=== PATIENT | male | born 1965 | race Caucasian/White ===

== ENCOUNTER 2017-07-23 21:48 | Emergency (ER) | payer OTHER ==
[2017-07-23] MEDS ORDERED: MORPHINE 10 MG/ML VIAL IVP STA (21:55)
[2017-07-23] MEDS ORDERED: SODIUM CHLORIDE 0.9% 1,000 ML IV ONE (21:55)
--- NOTE | 2017-07-23 21:59 | ED Physician Documentation ---
PD HPI ABD PAIN - Stated complaint Stated Complaint: ABD/BACK PX - History obtained from History obtained from: Patient - History of Present Illness Timing - onset: How many hours ago (1.5) Timing - details: Abrupt onset, Still present Quality: Cramping, Aching, Sharp Location: RUQ Radiation: Right flank Worsened by: Eating, Position Associated symptoms: No: Fever, Nausea, Vomiting, Diarrhea, Constipation Similar symptoms before: Work up / diagnostics Recently seen: Not recently seen - Additional information Additional information: Patient is a 51 year old male who is presenting to the emergency department for abdominal pain. Patient states that it started this evening. patient reports that it is mainly in his right upper quadrant with radiation to his right flank. Patient states that he has had a problem with his gallbladder in the past but he never needed surgery. Patient states that he ate a pulled pork sandwich earlier today. Review of Systems Constitutional: denies: Fever, Chills Eyes: denies: Decreased vision Ears: denies: Ear pain Nose: denies: Congestion Throat: denies: Dental pain / toothache Cardiac: denies: Chest pain / pressure, Palpitations Respiratory: denies: Dyspnea GI: reports: Abdominal Pain, Nausea. denies: Vomiting, Constipation, Diarrhea : denies: Dysuria, Frequency, Hematuria, Discharge Skin: denies: Rash, Lesions Musculoskeletal: reports: Back pain Neurologic: denies: Generalized weakness, Focal weakness Immunocompromised: reports: Other (diabetic) PD PAST MEDICAL HISTORY - Present Medications Home Medications: Ambulatory Orders Medication Instructions Recorded Confirmed Amlodipine Besylate 10 mg PO DAILY 07/23/17 07/23/17 Atorvastatin [Lipitor] 10 mg PO DAILY 07/23/17 07/23/17 Gabapentin 300 mg PO BID 07/23/17 07/23/17 Hydrochlorothiazide 12.5 mg PO DAILY 07/23/17 07/23/17 Lisinopril 20 mg PO DAILY 07/23/17 07/23/17 Loratadine 10 mg PO DAILY 07/23/17 07/23/17 Montelukast [Singulair] 10 mg PO QPM 07/23/17 07/23/17 Ondansetron Odt [Zofran] 4 mg TL Q6H PRN #10 tablet 07/23/17 Oxycodone HCl/Acetaminophen 1 - 2 each PO Q6H PRN #10 tablet 07/23/17 [Percocet 5-325 mg Tablet] metFORMIN [Glucophage] 500 mg PO BID 07/23/17 07/23/17 - Allergies Allergies/Adverse Reactions: Allergies Allergy/AdvReac Type Severity Reaction Status Date / Time No Known Drug Allergies Allergy Verified 07/23/17 21:57 PD ED PE NORMAL - Vitals Vital signs reviewed: Yes - General General: Alert and oriented X 3 - HEENT HEENT: Atraumatic, PERRL - Neck Neck: Supple, no meningeal sign - Cardiac Cardiac: RRR, No murmur - Respiratory Respiratory: No respiratory distress - Derm Derm: Normal color, Warm and dry, No rash - Extremities Extremities: No deformity, Normal ROM s pain - Neuro Neuro: Alert and oriented X 3, No motor deficit, No sensory deficit, Normal speech - Psych Psych: Normal mood, Normal affect PD ED PE EXPANDED - General General: Alert, No acute distress - HEENT HEENT: Dry mucous membranes - Abdomen Abdomen: Tender to palpation, RUQ, Other (obese). No: Rebound, Guarding Results - Vitals Vitals: Vital Signs - 24 hr 07/23/17 21:55 Temperature 37.8 C H Heart Rate 86 Respiratory 20 Rate Blood Pressure 172/117 H O2 Saturation 95 Oxygen O2 Source Room air - Labs Labs: Laboratory Tests 07/23/17 07/23/17 07/23/17 22:10 22:10 22:47 WBC 9.7 RBC 4.68 L Hgb 14.3 Hct 41.4 L MCV 88.5 MCH 30.6 MCHC 34.6 RDW 12.6 Plt Count 248 MPV 7.6 Neut # 5.1 Lymph # 3.1 Jack # 1.0 Eos # 0.4 Baso # 0.1 Absolute Nucleated RBC 0.00 Nucleated RBC % 0.0 Sodium 136 Potassium 3.6 Chloride 99 L Carbon Dioxide 29 Anion Gap 8.0 BUN 19 Creatinine 1.2 Estimated GFR (MDRD) 64 L Glucose 208 H Calcium 9.3 Total Bilirubin 0.5 AST 34 ALT 56 Alkaline Phosphatase 69 Total Protein 7.2 Albumin 4.4 Globulin 2.8 Albumin/Globulin Ratio 1.6 Lipase 48 Urine Color YELLOW Urine Clarity CLOUDY Urine pH 8.0 H Ur Specific [place] 1.015 Urine Protein NEGATIVE Urine Glucose (UA) 100 H Urine Ketones NEGATIVE Urine Occult Blood NEGATIVE Urine Nitrite NEGATIVE Urine Bilirubin NEGATIVE Urine Urobilinogen 0.2 (NORMAL) Ur Leukocyte Esterase NEGATIVE Urine RBC None Seen Urine WBC 0-3 Ur Squamous Epith Cells NONE SEEN Amorphous Sediment Moderate Urine Bacteria None Seen Ur Microscopic Review INDICATED Urine Culture Comments NOT INDICATED - Rads (name of study) abdom limited us Radiology: Final report received (gallstones without signs of acute infection) PD MEDICAL DECISION MAKING - ED course Complexity details: reviewed old records, reviewed results, re-evaluated patient , considered differential, d/w patient ED course: Patient was seen and examined at bedside. IV access was gained and labs were drawn. patient was treated with iv fluids and morphine. ultrasound was ordered. when the ultrasound was complete the results were reviewed. there were multiple stones but no sign of acute cholecystitis. Patient was made aware of the findings. Departure - Departure Disposition: Home, Self Care Clinical Impression: Gallstones without obstruction of gallbladder Condition: Good Instructions: ED Gallstone W Biliary Colic Follow-Up: KEYON QUIROGA MD [Provider Admit Priv/Credential] - Within 3 Days Prescriptions: Ondansetron Odt [Zofran] 4 mg TL Q6H PRN #10 tablet PRN Reason: Nausea / Vomiting Oxycodone HCl/Acetaminophen [Percocet 5-325 mg Tablet] 1 - 2 each PO Q6H PRN # 10 tablet PRN Reason: pain Comments: Your symptoms today are being caused by gallstones. there is no sign of acute infection at this time. ther first thing you will need to do is to change your diet, no fried or fatty foods. You should follow up with your doctor for general surgery consult or you can talk to Dr. Quiroga as it will eventually need to be taken out. You can take zofran for nausea, and tylenol for pain, and percocet for breakthrough pain. You should return to the emergency department for fevers, chills or uncontrolled vomiting.
[2017-07-23] MEDS ORDERED: MORPHINE 2 MG/ML SYRINGE ONE (22:06)
[2017-07-23 22:14] LABS: BASOPHILS # (AUTO) 0.1 10^3/uL (0.0-0.1); BASOPHILS % (AUTO) 0.8 %; EOSINOPHILS # (AUTO) 0.4 10^3/uL (0.0-0.7); EOSINOPHILS % (AUTO) 4.3 %; HCT - HEMATOCRIT 41.4 % (42.0-52.0); HGB - HEMOGLOBIN 14.3 g/dL (14.0-18.0); LYMPHOCYTES # (AUTO) 3.1 10^3/uL (1.5-3.5); LYMPHOCYTES % (AUTO) 31.8 %; MEAN CORPUSCULAR HEMOGLOBIN 30.6 pg (27.0-31.0); MEAN CORPUSCULAR HGB CONC 34.6 g/dL (32.0-36.0); MEAN CORPUSCULAR VOLUME 88.5 fL (80.0-94.0); MEAN PLATELET VOLUME 7.6 fL (7.4-11.4); MONOCYTES % (AUTO) 10.3 %; NEUTROPHILS # (AUTO) 5.1 10^3/uL (1.5-6.6); NEUTROPHILS % (AUTO) 52.8 %; RED BLOOD COUNT 4.68 10^6/uL (4.70-6.10); RED CELL DISTRIBUTION WIDTH 12.6 % (12.0-15.0); UNCORRECTED WHITE BLOOD COUNT 9.7 x10^3/uL; WHITE BLOOD COUNT 9.7 x10^3/uL (4.8-10.8)
[2017-07-23 22:27] LABS: ALBUMIN/GLOBULIN RATIO 1.6 (1.0-2.2); BILIRUBIN,TOTAL 0.5 mg/dL (0.2-1.0); CALCIUM 9.3 mg/dL (8.5-10.3); CREATININE 1.2 mg/dL (0.6-1.2); POTASSIUM 3.6 mmol/L (3.5-5.0); TOTAL PROTEIN 7.2 g/dL (6.7-8.2)
[2017-07-23 22:53] LABS: BILIRUBIN,URINE NEGATIVE (NEGATIVE)
[2017-07-23 22:55] LABS: UA w/ MICROSCOPIC CHARGE YES
[2017-07-23 23:01] LABS: UR CULTURE IF IND NOT INDICATED; WBC,URINE 0-3 /HPF (0-3)
--- NOTE | 2017-07-23 23:15 | Ultrasound Preliminary Report ---
Exam: US ABDOMEN LIMITED IMPRESSION: 1. Gallstones with positive sonographic Rizvi sign. No definite gallbladder wall thickening or peric holecystic fluid. Symptomatic cholelithiasis or early acute cholecystitis remain at the differential. 2. Enlarged fatty liver with focal fat sparing in the gallbladder fossa. No mass or intrahepatic bile duct dilation. 3. Normal common bile duct. [facility] SITE ID: [id number]
[2017-07-23 23:41] VITALS: BP 147/92
--- NOTE | 2017-07-24 00:18 | Ultrasound Report ---
EXAM: ABDOMEN ULTRASOUND LIMITED, RUQ EXAM DATE: 07/23/2017 10:11 PM. CLINICAL HISTORY: Right upper quadrant pain, history of gallbladder disease. COMPARISON: None. TECHNIQUE: Real-time scanning was performed with static images obtained. FINDINGS: Liver: Liver parenchyma is heterogeneous and moderately hyperechoic. No discrete liver masses or in trahepatic bile duct dilation. However, evaluation for masses is limited secondary to the echogenici ty. Focal fat sparing near the gallbladder fossa noted. Right liver measures up to 19.4 cm. Main por michael vein flow: Hepatopetal. Gallbladder: Multiple mobile gallstones and sludge. Per report, the patient had a positive sonographi c Rizvi sign. No definite gallbladder wall thickening or pericholecystic fluid. Biliary System: CBD measures 4 mm. No intrahepatic or extrahepatic ductal dilatation. Right Kidney: Length measures 11.8 cm. No hydronephrosis. Exophytic anechoic 3.3 x 3.8 x 3.5 cm super ior right renal cyst. Other: None. IMPRESSION: 1. Gallstones with positive sonographic Rizvi sign. No definite gallbladder wall thickening or peric holecystic fluid. Symptomatic cholelithiasis or early acute cholecystitis remain at the differential. 2. Enlarged fatty liver with focal fat sparing near the gallbladder fossa. No mass or intrahepatic bi le duct dilation. 3. Normal common bile duct. [facility] Referring Provider Line: [phone] SITE ID: [id number]
== END 2017-07-23 23:41 | disposition home or self-care (01) ==
LOC: ED 21:48
DX: K80.80 Other cholelithiasis without obstruction (principal)
CPT/HCPCS: 36415; 76705; 80053; 81001; 81003; 83690; 85025; 87086; 96360; 99283

== ENCOUNTER 2017-07-26 18:09 | Inpatient (IN) | payer OTHER ==
[2017-07-26] MEDS ORDERED: SODIUM CHLORIDE 0.9% 1,000 ML IV ONE ×2 (18:29)
[2017-07-26] MEDS ORDERED: ONDANSETRON 4 MG/2 ML VIAL IVP STA (18:29)
[2017-07-26] MEDS ORDERED: HYDROmorphone 1 MG/ML SYRINGE IVP STA ×2 (18:29→19:26)
--- NOTE | 2017-07-26 18:33 | ED Physician Documentation ---
PD HPI ABD PAIN - Stated complaint Stated Complaint: ABDOMINAL PX - Chief complaint Chief Complaint: Abd Pain - History obtained from History obtained from: Patient, Family - History of Present Illness Timing - onset: How many days ago (3) Timing - duration: Days (3) Timing - details: Gradual onset Pain level max: 10 Pain level now: 10 Quality: Aching, Pain Location: RUQ Radiation: Other (mid back) Improved by: Other (nothing) Worsened by: Eating, Palpation Associated symptoms: Nausea. No: Fever, Vomiting, Hematemesis, Diarrhea, Constipation, Melena, Hematochezia, Dysuria, Hematuria Similar symptoms before: Diagnosis (biliary colic) Recently seen: Emergency Dept (3 days ago for same, US with gallstones and + rizvi) Review of Systems Ten Systems: 10 systems reviewed and negative Constitutional: denies: Fever, Chills Nose: denies: Rhinorrhea / runny nose, Congestion Throat: denies: Sore throat Cardiac: denies: Chest pain / pressure : denies: Dysuria Skin: denies: Rash Musculoskeletal: denies: Neck pain, Back pain Neurologic: denies: Headache PD PAST MEDICAL HISTORY - Past Medical History Past Medical History: Yes Cardiovascular: Hypertension, High cholesterol Respiratory: Other Neuro: None Endocrine/Autoimmune: Type 2 diabetes GI: Cholelithiasis : None HEENT: None Psych: None Musculoskeletal: None Derm: None - Past Surgical History Past Surgical History: No - Present Medications Home Medications: Ambulatory Orders Medication Instructions Recorded Confirmed Amlodipine Besylate 10 mg PO DAILY 07/23/17 07/26/17 Atorvastatin [Lipitor] 10 mg PO DAILY 07/23/17 07/26/17 Gabapentin 300 mg PO BID 07/23/17 07/26/17 Hydrochlorothiazide 12.5 mg PO DAILY 07/23/17 07/26/17 Lisinopril 20 mg PO DAILY 07/23/17 07/26/17 Loratadine 10 mg PO DAILY 07/23/17 07/26/17 Montelukast [Singulair] 10 mg PO QPM 07/23/17 07/26/17 Ondansetron Odt [Zofran Odt] 4 mg TL Q6H PRN #10 tablet 07/23/17 07/26/17 Oxycodone HCl/Acetaminophen 1 - 2 each PO Q6H PRN #10 tablet 07/23/17 07/26/17 [Percocet 5-325 mg Tablet] metFORMIN [Glucophage] 500 mg PO BID 07/23/17 07/26/17 - Allergies Allergies/Adverse Reactions: Allergies Allergy/AdvReac Type Severity Reaction Status Date / Time No Known Drug Allergies Allergy Verified 07/23/17 21:57 - Social History Does the pt smoke?: No Smoking Status: Never smoker Does the pt drink ETOH?: No Does the pt have substance abuse?: No - Immunizations Immunizations are current?: Yes PD ED PE NORMAL - Vitals Vital signs reviewed: Yes - General General: Alert and oriented X 3, No acute distress - HEENT HEENT: Moist mucous membranes - Neck Neck: Supple, no meningeal sign - Cardiac Cardiac: RRR, Strong equal pulses - Respiratory Respiratory: No respiratory distress, Clear bilaterally - Abdomen Abdomen: Soft, Non distended, Other (TTP RUQ, + sonographic rizvi sign) - Derm Derm: Warm and dry - Neuro Neuro: Alert and oriented X 3 - Psych Psych: Normal mood, Normal affect Results - Vitals Vitals: Vital Signs - 24 hr 07/26/17 18:18 Temperature 36.9 C Heart Rate 88 Respiratory 20 Rate Blood Pressure 164/99 H O2 Saturation 100 Oxygen O2 Source Room air - Labs Labs: Laboratory Tests 07/26/17 07/26/17 18:33 18:33 WBC 29.8 H RBC 5.02 Hgb 15.3 Hct 44.9 MCV 89.6 MCH 30.4 MCHC 33.9 RDW 12.9 Plt Count 283 MPV 8.0 Neut # Not Reportable Lymph # Not Reportable [place] # Not Reportable Eos # Not Reportable Baso # Not Reportable Absolute Nucleated RBC Not Reportable Total Counted 100 Band Neuts % (Manual) 2 Nucleated RBC % Not Reportable Neutrophils # (Manual) 26.5 H Lymphocytes # (Manual) 0.6 L Monocytes # (Manual) 2.7 H Differential Comment MANUAL DIFFERENTIAL Manual Slide Review Indicated Platelet Estimate NORMAL (130-450,000) Platelet Morphology RARE GIANT PLATELETS RBC Morph Micro Appear NORMAL APPEARANCE Sodium 133 L Potassium 3.2 L Chloride 91 L Carbon Dioxide 26 Anion Gap 16.0 H BUN 13 Creatinine 1.2 Estimated GFR (MDRD) 64 L Glucose 225 H Calcium 9.3 Total Bilirubin 1.2 H AST 19 ALT 29 Alkaline Phosphatase 63 Total Protein 7.9 Albumin 4.0 Globulin 3.9 Albumin/Globulin Ratio 1.0 Lipase 21 L - Rads (name of study) RUQ US Radiology: Prelim report reviewed, EMP read contemporaneously, See rad report ( Sonographic findings suspicious for acute cholecystitis. Gallbladder is distended. Mild gallbladder wall thickening. There is cholelithiasis and a positive sonographic Rizvi sign. No intra-or extrahepatic bile duct dilatation.) PD MEDICAL DECISION MAKING - ED course Complexity details: reviewed results, re-evaluated patient, considered differential, d/w patient, d/w bridal consultant ED course: 1829 Dr. Chato Romeo (surgery operations assistant) and recommends labs to decide if needs repeat US. / Dr. Romeo who requests US. Patient is a 51-year-old male who presents to the emergency department with cholecystitis. White blood cell count is significantly elevated, though LFTs are still normal. Appears to have cholecystitis on ultrasound. Started on Zosyn. Will admit the patient for further evaluation and care including likely surgery to remove the gallbladder. Does not appear septic. Discussed the case with Dr. Romeo, surgery on-call as well as Dr. Erwin, hospitalist. Pain well controlled in the emergency department. This document was made in part using voice recognition software. While efforts are made to proofread this document, sound alike and grammatical errors may occur. Departure - Departure Disposition: [facility] DC/Christiano Clinical Impression: Acute cholecystitis Condition: Stable Discharge Date/Time: 07/26/17 20:31
[2017-07-26 18:42] LABS: BASOPHILS % (AUTO) 0.4 %; EOSINOPHILS % (AUTO) 0.2 %; HCT - HEMATOCRIT 44.9 % (42.0-52.0); HGB - HEMOGLOBIN 15.3 g/dL (14.0-18.0); LYMPHOCYTES % (AUTO) 5.2 %; MEAN CORPUSCULAR HEMOGLOBIN 30.4 pg (27.0-31.0); MEAN CORPUSCULAR HGB CONC 33.9 g/dL (32.0-36.0); MEAN CORPUSCULAR VOLUME 89.6 fL (80.0-94.0); MONOCYTES % (AUTO) 9.9 %; NEUTROPHILS % (AUTO) 84.3 %; RED BLOOD COUNT 5.02 10^6/uL (4.70-6.10); RED CELL DISTRIBUTION WIDTH 12.9 % (12.0-15.0); UNCORRECTED WHITE BLOOD COUNT 29.8 x10^3/uL; WHITE BLOOD COUNT 29.8 x10^3/uL (4.8-10.8)
[2017-07-26] MEDS ORDERED: ONDANSETRON 4 MG/2 ML VIAL ONE (18:42)
[2017-07-26] MEDS ORDERED: HYDROmorphone 1 MG/ML SYRINGE ONE ×2 (18:42→19:34)
[2017-07-26 18:52] LABS: BILIRUBIN,TOTAL 1.2 mg/dL (0.2-1.0); CALCIUM 9.3 mg/dL (8.5-10.3); CREATININE 1.2 mg/dL (0.6-1.2); POTASSIUM 3.2 mmol/L (3.5-5.0); TOTAL PROTEIN 7.9 g/dL (6.7-8.2)
[2017-07-26] MEDS ORDERED: PIPERACILLIN/TAZOBACTAM 3.375 GM in SODIUM CHLORIDE 0.9% MINIBAG 100 ML IV STA (19:03)
[2017-07-26 19:06] LABS: BAND NEUTROPHILS % (MANUAL) 2 %; LYMPHOCYTES % (MANUAL) 2 %; NEUTROPHILS % (MANUAL) 87 %; NP AUTO DIFFERENTIAL? YES; NP MAN DIFFERENTIAL? NO; PLATELET ESTIMATE, MANUAL NORMAL (130-450,000) (NORMAL); PLATELET MORPHOLOGY RARE GIANT PLATELETS (NORMAL); TOTAL CELLS COUNTED 100
[2017-07-26] MEDS ORDERED: ZOLPIDEM 5 MG TABLET PO PRN (19:57)
[2017-07-26] MEDS ORDERED: PROMETHAZINE 25 MG/1 ML VIAL IM PRN (19:57)
[2017-07-26] MEDS ORDERED: PROCHLORPERAZINE 10 MG/2 ML VIAL IVP PRN (19:57)
[2017-07-26] MEDS ORDERED: oxyCODONE 5 MG TABLET PO PRN (19:57)
[2017-07-26] MEDS ORDERED: ONDANSETRON 4 MG/2 ML VIAL IVP PRN (19:57)
--- NOTE | 2017-07-26 20:16 | Ultrasound Preliminary Report ---
Exam: US ABDOMEN LIMITED IMPRESSION: 1. Sonographic findings suspicious for acute cholecystitis. The gallbladder is distended. There is mi ld gallbladder wall thickening. There is cholelithiasis and a positive sonographic Rivzi sign. 2. No intra-or extrahepatic bile duct dilatation. [facility] SITE ID: [id number]
--- NOTE | 2017-07-26 20:18 | Ultrasound Report ---
EXAM: ABDOMEN ULTRASOUND LIMITED, RUQ EXAM DATE: 07/26/2017 08:00 PM. CLINICAL HISTORY: RUQ pain. COMPARISON: 07/23/2017. TECHNIQUE: Real-time scanning was performed with static images obtained. FINDINGS: Liver: There is hepatic steatosis. No suspicious hepatic lesions are seen. Decreased echogenicity adj acent to gallbladder fossa could be secondary to inflammation and/or represent focal fatty sparing. M ain portal vein flow: Hepatopetal. Gallbladder: There is mild gallbladder wall thickening. There is cholelithiasis. There is a positive sonographic Rizvi sign. The gallbladder is distended. Biliary System: CBD measures 5 mm. No intrahepatic or extrahepatic ductal dilatation. Other: The visualized pancreas and right kidney are unremarkable. IMPRESSION: 1. Sonographic findings suspicious for acute cholecystitis. The gallbladder is distended. There is mi ld gallbladder wall thickening. There is cholelithiasis and a positive sonographic Rizvi sign. 2. No intra-or extrahepatic bile duct dilatation. [facility] Referring Provider Line: [phone] SITE ID: [id number]
[2017-07-26] MEDS: GABAPENTIN 300 MG CAPSULE PO SCH (20:52)
[2017-07-26] MEDS: oxyCODONE 5 MG TABLET PO PRN (20:52)
--- NOTE | 2017-07-26 20:52 | CONSULTATION NOTE ---
Referring Provider Name of Referring Provider:: Dr. Erwin Consult Date: 07/26/17 Chief Complaint - Chief Complaint Chief Complaint: abdominal pain History of Present Illness - Admitted From Admitted From:: ER - History Obtained From Records Reviewed: yes History obtained from: patient - History of Present Illness HPI Comment/Other: 51 yo male with 3 days of constant, steady epigastric and RUQ abdominal pain which radiates into back, associated with anorexia but no N/V, fever/chills, change in bowel habits, melena, hematochezia, diarrhea, dysuria, urinary frequency, acute respiratory sx, unusual oral intake, recent wt changes, jaundice or acholic stools. He has occasional heartburn, no dysphagia, no hx PUD , minimal alcohol intake. He has type 2 NIDDM and a family hx of gallbladder disease in his mother and grandmother. He was seen in the ER 3 days ago shortly after onset of sx where CBC, LFTs, lipase, UA were nl and abd US showed cholelithiasis with a positive sonographic Rizvi's sign but no gallbladder wall thickening or biliary ductal abnormalities. Because of persistent, worsening pain unrelieved with oxycodone he returned to the ER tonight for reevaluation. History - Past Medical History Cardiovascular: reports: Hypertension, High cholesterol Respiratory: reports: Asthma, Other Neuro: reports: Peripheral neuropathy (diabetic involving feet with pain but no sensory loss) Endocrine/Autoimmune: reports: Type 2 diabetes GI: reports: GERD, Cholelithiasis. denies: GI bleed, Ulcers, Chronic diarrhea, Chronic constipation, Hepatitis : reports: None HEENT: reports: None Psych: reports: None Musculoskeletal: reports: Other (bilat knee pain with jogging) Derm: reports: None MRSA Hx?: No - Past Surgical History HEENT: reports: Other (multiple sinus surgeries) - Family & Social History Living arrangement: At home - Substance History Use: Uses substance without health or social issues: NONE Abuse: Recurrent use of substance despite neg consequences: NONE Dependence: Experiences withdrawal or developed tolerances: NONE - POLST POLST Status: Full Code Meds/Allgy - Home Medications Home Medications: Ambulatory Orders Medication Instructions Recorded Confirmed Amlodipine Besylate 10 mg PO DAILY 07/23/17 07/26/17 Atorvastatin [Lipitor] 10 mg PO DAILY 07/23/17 07/26/17 Gabapentin 300 mg PO BID 07/23/17 07/26/17 Hydrochlorothiazide 12.5 mg PO DAILY 07/23/17 07/26/17 Lisinopril 20 mg PO DAILY 07/23/17 07/26/17 Loratadine 10 mg PO DAILY 07/23/17 07/26/17 Montelukast [Singulair] 10 mg PO QPM 07/23/17 07/26/17 Ondansetron Odt [Zofran] 4 mg TL Q6H PRN #10 tablet 07/23/17 07/26/17 Oxycodone HCl/Acetaminophen 1 - 2 each PO Q6H PRN #10 tablet 07/23/17 07/26/17 [Percocet 5-325 mg Tablet] metFORMIN [Glucophage] 500 mg PO BID 07/23/17 07/26/17 - Allergies Allergies/Adverse Reactions: Allergies Allergy/AdvReac Type Severity Reaction Status Date / Time No Known Drug Allergies Allergy Verified 07/23/17 21:57 Review of Systems - Constitutional Constitutional: reports: Poor appetite. denies: Fever, Chills, Diaphoresis, Night sweats, Weight gain, Weight loss - Cardiovascular Cariovascular: denies: Irregular heart rate, Chest pain - Respiratory Respiratory: denies: Cough - Gastrointestinal Gastrointestinal: reports: Abdominal pain, Reflux/heartburn, Poor appetite. denies: Abdominal distention, Constipation, Diarrhea, Change in bowel habits, Rectal bleeding, Black stools, Bloody stools, Nausea, Vomiting, Bile emesis, [place] blood emesis, Coffee grounds emesis - Genitourinary Genitourinary: reports: Flank pain. denies: Dysuria, Frequency, Urgency, Hematuria - Musculoskeletal Musculoskeletal: reports: Joint pain (knees) - Neurological Neurological: reports: Other (foot pain bilat thought due to diabetic peripheral neuropathy) - All Other Systems All Other Systems: reports: Reviewed and negative Exam - Vital Signs Vital Signs: Vital Signs x48h Temp Pulse Resp BP Pulse Ox 07/26/17 20:39 38.3 C H 117 H 18 131/90 H 93 - Physical Exam General Appearance: positive: Moderate distress (c/o abd pain) Eyes Bilateral: positive: Normal inspection, PERRL, No scleral icterus ENT: positive: Pharynx nml, Dry mucous membranes. negative: Pharyngeal erythema , Oral lesions Neck: positive: Thyroid nml, No JVD, Trachea midline. negative: Lymphadenopathy (R), Lymphadenopathy (L) Respiratory: positive: Chest non-tender, No respiratory distress, Breath sounds nml Cardiovascular: positive: Regular rate & rhythm, No murmur, No gallop Peripheral Pulses: positive: 2+ Abdomen: positive: No organomegaly, Nml bowel sounds, Tenderness (RUQ with guarding and rebound and positive Rizvi's sign; no generalized peritoneal signs ), Guarding, Rebound. negative: Hepatomegaly, Splenomegaly, Mass Skin: positive: Color nml, No rash, Warm, Dry Extremities: positive: Non-tender, Nml appearance, No pedal edema. negative: Pedal edema, Calf tenderness Neurologic/Psychiatric: positive: Oriented x3 Conclusion/Plan - Diagnosis Diagnosis: 1. acute calculous cholecystitis. 2. sepsis secondary to above. 3. hypokalemia secondary to diuretic therapy. 4. mild volume depletion. 5. hyperglycemia in pt with known type 2 NIDDM. 6. hypertension - Plan Plan: Admission for analgesia, antibiotic therapy, IV fluids, replace potassium, treat hyperglycemia, and laparoscopic cholecystectomy in am. PAR conference with patient and consent has been signed. - Lab Results Fish Bones: 07/26/17 18:33 07/26/17 18:33 - Diagnostic Imaging Results Diagnostic Imaging Results: positive: Prelim report reviewed, Final report reviewed, Read contemporaneously
[2017-07-26] MEDS: SODIUM CHLORIDE FLUSH 0.9% 10 ML SYRINGE IVP SCH (20:53)
[2017-07-26] MEDS: MORPHINE 2 MG/ML SYRINGE IVP PRN ×2 (20:56→23:00)
[2017-07-26] MEDS ORDERED: MONTELUKAST 10 MG TABLET PO SCH (21:00)
[2017-07-26] MEDS ORDERED: FAMOTIDINE 20 MG TABLET ONE (21:11)
[2017-07-26] MEDS: ACETAMINOPHEN 325 MG TABLET PO PRN (21:22)
[2017-07-26] MEDS ORDERED: POTASSIUM CHLORIDE 20 MEQ TABLET PO SCH (22:16)
[2017-07-26 22:30] LABS: BILIRUBIN,URINE NEGATIVE (NEGATIVE); PH,URINE 5.5 PH (5.0-7.5)
[2017-07-26 22:44] LABS: UA w/ MICROSCOPIC CHARGE YES
[2017-07-26 22:45] LABS: UR CULTURE IF IND NOT INDICATED; WBC,URINE 0-3 /HPF (0-3)
[2017-07-26] MEDS: NS W/20 MEQ KCL 1,000 ML IV SCH (22:59)
[2017-07-27] MEDS: PIPERACILLIN/TAZOBACTAM 3.375 GM in SODIUM CHLORIDE 0.9% MINIBAG 100 ML IV SCH ×2 (00:01→05:57)
[2017-07-27] MEDS: INSULIN REGULAR HUMAN 100 UNIT/1 ML 10 ML MDV SUBQ SCH ×2 (00:02→05:56)
[2017-07-27] MEDS: oxyCODONE 5 MG TABLET PO PRN (00:48)
[2017-07-27] MEDS: MORPHINE 2 MG/ML SYRINGE IVP PRN ×3 (01:01→11:26)
--- NOTE | 2017-07-27 02:44 | HISTORY & PHYSICAL EXAMINATION ---
Chief Complaint - Chief Complaint Chief Complaint: Abdominal pain History of Present Illness - Admitted From Admitted From:: Emergency department - History Obtained From Records Reviewed: Yes History obtained from: Patient Exam Limitations: None - History of Present Illness HPI Comment/Other: Patient is a 51-year-old gentleman with a past medical history significant for type 2 diabetes, hypertension, hyperlipidemia, chronic sinusitis and asthma who presented to the emergency department with a chief complaint of abdominal pain. The patient states that he was in his normal state of health until Friday evening at 7 PM when he began having abdominal pain. Patient states that the pain was initially located in the right upper quadrant and it was sharp. He states the pain persisted so he went to the emergency department that evening. He was evaluated in our emergency department and underwent routine lab work which was all within normal limits and an abdominal ultrasound which did not show any gallbladder wall thickening but the patient did have a positive Rizvi sign which could have been suggestive of early cholecystitis. Patient was given pain medications and discharged home. The patient states that after returning home he has had persistent right upper quadrant abdominal pain which now he states has become diffuse and radiates down into his back. Patient describes the pain as a sharp pain that is unrelenting. He states that the pain is about a 7 out of 10. The patient states that he has been unable to eat almost anything over the last several days because of the pain and decreased appetite. The patient does admit to having a fever at home but denies any nausea or vomiting. The patient states that he took 3 pills of Vicodin that was prescribed to him today and had no relief of the pain and therefore finally decided to come back into the emergency department. The patient otherwise denies any headaches, blurred vision, runny nose, sore throat, nasal congestion, difficulty swallowing, throat pain, chest pain, shortness of air, orthopnea, PND, increased lower extremity swelling, chills, diarrhea, constipation, urinary urgency, urinary frequency, dysuria, joint pains , muscle aches, joint swelling, recent unintentional weight loss, polydipsia, changes in his skin, hair loss or any focal neurologic deficits. On presentation to the emergency department the patient was afebrile and vital signs were initially all within normal limits but the patient did appear to be in significant distress due to his abdominal pain. Later the patient spiked a temperature up to 38.3 and became tachycardic but was normotensive. The patient underwent routine lab work which did show a leukocytosis of 29.8, hypo- natremia of 133 and hypokalemia of 3.2. The patient's lactic acid was within normal limits. The patient underwent a repeat ultrasound of his abdomen this time the ultrasound shows sonographic findings suspicious for acute cholecystitis with a distended gallbladder and mild gallbladder wall thickening. The emergency room physician spoke with the surgeon textile conversion manager Dr. Eugenio Romeo who evaluated the patient in the emergency department. The surgeon requested that the hospitalist team admit the patient and give the patient IV antibiotics and fluids overnight and that he would take the patient to the OR for a laparoscopic cholecystectomy tomorrow morning at 9 AM. The patient was made n.p.o. for the procedure. History - Past Medical History Cardiovascular: reports: Hypertension, High cholesterol Respiratory: reports: Asthma, Other (Chronic sinusitis) Neuro: reports: Peripheral neuropathy Endocrine/Autoimmune: reports: Type 2 diabetes GI: reports: GERD, Cholelithiasis : reports: None HEENT: reports: None Psych: reports: None Musculoskeletal: reports: Other Derm: reports: None MRSA Hx?: No - Past Surgical History General: reports: Other HEENT: reports: Other - Family & Social History Family History Comment/Other: Mother and great-grandmother both had issues with her gallbladder. The patient' s mother is still alive and healthy. The patient has 2 sisters who are alive and healthy. The patient did not know his father. Living arrangement: At home Living Situation: Alone Social History Notes: The patient lives in [place]. He lives alone he is single and has no children. 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 Patient is originally from [place] but lived all over the country as his dad was in the [employer] growing up. The patient does not smoke cigarettes, he does not drink alcohol and he denies any illicit drug use. - Substance History Use: Uses substance without health or social issues: NONE Abuse: Recurrent use of substance despite neg consequences: NONE Dependence: Experiences withdrawal or developed tolerances: NONE - POLST Patient has POLST: No POLST Status: Full Code Meds/Allgy - Home Medications Home Medications: Ambulatory Orders Medication Instructions Recorded Confirmed Amlodipine Besylate 10 mg PO DAILY 07/23/17 07/26/17 Atorvastatin [Lipitor] 10 mg PO DAILY 07/23/17 07/26/17 Gabapentin 300 mg PO BID 07/23/17 07/26/17 Hydrochlorothiazide 12.5 mg PO DAILY 07/23/17 07/26/17 Lisinopril 20 mg PO DAILY 07/23/17 07/26/17 Loratadine 10 mg PO DAILY 07/23/17 07/26/17 Montelukast [Singulair] 10 mg PO QPM 07/23/17 07/26/17 Ondansetron Odt [Zofran] 4 mg TL Q6H PRN #10 tablet 07/23/17 07/26/17 Oxycodone HCl/Acetaminophen 1 - 2 each PO Q6H PRN #10 tablet 07/23/17 07/26/17 [Percocet 5-325 mg Tablet] metFORMIN [Glucophage] 500 mg PO BID 07/23/17 07/26/17 - Allergies Allergies/Adverse Reactions: Allergies Allergy/AdvReac Type Severity Reaction Status Date / Time No Known Drug Allergies Allergy Verified 07/23/17 21:57 Review of Systems - Other Findings Other Findings: A comprehensive review of systems was performed the pertinent positives and negatives are stated above in the HPI and the remainder of the review of systems is negative. Exam - Vital Signs Reviewed Vital Signs: Yes Vital Signs: Vital Signs x48h Temp Pulse Resp BP Pulse Ox 07/27/17 00:06 37.5 C 114 H 18 135/90 H 92 07/26/17 20:39 38.3 C H 117 H 18 131/90 H 93 - Physical Exam General Appearance: positive: Alert, Mild distress (Uncomfortable, in pain.) Eyes Bilateral: positive: Normal inspection, PERRL, EOMI, No lid inflammation, Conjunctivae nml, No scleral icterus ENT: positive: ENT inspection nml, Pharynx nml, Dry mucous membranes. negative : Purulent nasal drainage, Pharyngeal erythema, Oral lesions Neck: positive: Nml inspection, Thyroid nml, No JVD, Trachea midline. negative : Thyromegaly, Lymphadenopathy (R), Lymphadenopathy (L), Stiff neck, Carotid bruit, Tracheal deviation Respiratory: positive: Chest non-tender, No respiratory distress, Breath sounds nml. negative: Wheezes, Rales, Rhonchi Cardiovascular: positive: No murmur, No gallop, Tachycardia Peripheral Pulses: positive: 2+ Abdomen: positive: Nml bowel sounds, Tenderness (Patient is diffusely tender but there is localized tenderness in the right upper quadrant, positive Rizvi sign, guarding), Guarding. negative: Rebound, Hepatomegaly, Splenomegaly Back: positive: Nml inspection. negative: CVA tenderness (R), CVA tenderness (L ) Skin: positive: No rash, Dry. negative: Cyanosis, Diaphoresis, Pallor Extremities: positive: Non-tender, Full ROM, Nml appearance, No pedal edema. negative: Calf tenderness, Joint swelling Neurologic/Psychiatric: positive: Oriented x3, CN's nml (2-12), Motor nml, Sensation nml, Mood/affect nml Conclusion/Plan - Problem List (1) Sepsis Conclusion/Plan: Patient presented with right upper quadrant abdominal pain. Initially patient' s vital signs were stable but patient quickly became febrile with temperature of 38.1, tachycardic with heart rate in the 110s and he was found to have a leukocytosis of 29.8. The patient's lactic acid was normal, kidney function was preserved but he did appear to be quite dehydrated. The source of the patient's sepsis appears to be acute cholecystitis as there was evidence on ultrasound for acute cholecystitis. Plan: Blood cultures 2 IV fluids IV Zosyn 3.375 g every 6 hours Monitor closely for hypotension Surgical consult for cholecystectomy (2) Acute cholecystitis Conclusion/Plan: Patient presented with right upper quadrant abdominal pain. Patient had a positive Rizvi sign and ultrasound revealed patient has acute cholecystitis. Patient was septic on presentation with leukocytosis of 29.8, fever 38.1 and tachycardia. Patient given IV fluids and IV Zosyn in the emergency department. Surgery was consulted and will take the patient to the OR for cholecystectomy in the morning. Plan: IV Zosyn IV morphine for pain control N.p.o. Surgical consult for laparoscopic cholecystectomy tomorrow morning (3) Hypokalemia Conclusion/Plan: Patient's potassium on presentation was 3.2. Patient appears to be dehydrated. Replace potassium Monitor (4) Hyponatremia Conclusion/Plan: Patient presented with a sodium of 133. The patient appears to have hypovolemic hyponatremia likely secondary to dehydration. Plan give IV fluids and monitor sodium (5) Diabetes Conclusion/Plan: The patient has history of diabetes and is on metformin. On presentation the patient's blood glucose is 225. It is likely elevated secondary to infectious process. Plan: Check hemoglobin A1c Monitor glucose before meals at bedtime Patient n.p.o. and will be placed on n.p.o. sliding scale insulin Hold metformin Qualifiers: Diabetes mellitus type: type 2 (6) Hypertension Conclusion/Plan: Given that patient presented with sepsis we will need to monitor closely for hypotension. On presentation the patient did appear to be hypertensive likely secondary to pain. Plan: Monitor patient's blood pressure Continue home medications Control pain Qualifiers: Hypertension type: essential hypertension Qualified Code(s): I10 - Essential (primary) hypertension (7) Hyperlipidemia Conclusion/Plan: Patient has history of hyperlipidemia and is on a statin at home we will continue him on statin while he is hospitalized. (8) Asthma Conclusion/Plan: Patient has history of chronic sinusitis and mild asthma. Patient takes Singulair at home. The patient will be continued on Singulair and will receive nebs as needed. Currently the patient appears to be stable (9) DVT prophylaxis Conclusion/Plan: Patient will be placed on Lovenox for DVT prophylaxis as he will undergo surgical procedure in the morning. - Lab Results Lab results reviewed: Yes Fish Bones: 07/26/17 18:33 07/26/17 18:33 Other Lab Results: Laboratory Results WBC 29.8 x10^3/uL (4.8-10.8) H 07/26/17 18:33 RBC 5.02 10^6/uL (4.70-6.10) 07/26/17 18:33 Hgb 15.3 g/dL (14.0-18.0) 07/26/17 18:33 Hct 44.9 % (42.0-52.0) 07/26/17 18:33 MCV 89.6 fL (80.0-94.0) 07/26/17 18:33 MCH 30.4 pg (27.0-31.0) 07/26/17 18:33 MCHC 33.9 g/dL (32.0-36.0) 07/26/17 18:33 RDW 12.9 % (12.0-15.0) 07/26/17 18:33 Plt Count 283 10^3/uL (130-450) 07/26/17 18:33 MPV 8.0 fL (7.4-11.4) 07/26/17 18:33 Neut # Not Reportable 07/26/17 18:33 Lymph # Not Reportable 07/26/17 18:33 [place] # Not Reportable 07/26/17 18:33 Eos # Not Reportable 07/26/17 18:33 Baso # Not Reportable 07/26/17 18:33 Absolute Nucleated RBC Not Reportable 07/26/17 18:33 Total Counted 100 07/26/17 18:33 Band Neuts % (Manual) 2 % (0-10) 07/26/17 18:33 Nucleated RBC % Not Reportable 07/26/17 18:33 Neutrophils # (Manual) 26.5 10^3/uL (1.5-6.6) H 07/26/17 18:33 Lymphocytes # (Manual) 0.6 10^3/uL (1.5-3.5) L 07/26/17 18:33 Monocytes # (Manual) 2.7 10^3/uL (0.0-1.0) H 07/26/17 18:33 Differential Comment MANUAL DIFFERENTIAL 07/26/17 18:33 Manual Slide Review Indicated 07/26/17 18:33 Platelet Estimate NORMAL (130-450,000) (NORMAL) 07/26/17 18:33 Platelet Morphology RARE GIANT PLATELETS (NORMAL) 07/26/17 18:33 RBC Morph Micro Appear NORMAL APPEARANCE (NORMAL) 07/26/17 18:33 Sodium 133 mmol/L (135-145) L 07/26/17 18:33 Potassium 3.2 mmol/L (3.5-5.0) L 07/26/17 18:33 Chloride 91 mmol/L (101-111) L 07/26/17 18:33 Carbon Dioxide 26 mmol/L (21-32) 07/26/17 18:33 Anion Gap 16.0 (6-13) H 07/26/17 18:33 BUN 13 mg/dL (6-20) 07/26/17 18:33 Creatinine 1.2 mg/dL (0.6-1.2) 07/26/17 18:33 Estimated GFR (MDRD) 64 (>89) L 07/26/17 18:33 Glucose 225 mg/dL (70-100) H 07/26/17 18:33 POC Whole Bld Glucose 207 mg/dL (70 - 100) H 07/26/17 23:47 Lactic Acid 1.7 mmol/L (0.5-2.2) 07/26/17 20:20 Calcium 9.3 mg/dL (8.5-10.3) 07/26/17 18:33 Total Bilirubin 1.2 mg/dL (0.2-1.0) H 07/26/17 18:33 AST 19 IU/L (10-42) 07/26/17 18:33 ALT 29 IU/L (10-60) 07/26/17 18:33 Alkaline Phosphatase 63 IU/L (42-121) 07/26/17 18:33 Total Protein 7.9 g/dL (6.7-8.2) 07/26/17 18:33 Albumin 4.0 g/dL (3.2-5.5) 07/26/17 18:33 Globulin 3.9 g/dL (2.1-4.2) 07/26/17 18:33 Albumin/Globulin Ratio 1.0 (1.0-2.2) 07/26/17 18:33 Lipase 21 U/L (22-51) L 07/26/17 18:33 Urine Color YELLOW 07/26/17 22:22 Urine Clarity HAZY (CLEAR) 07/26/17 22:22 Urine pH 5.5 PH (5.0-7.5) 07/26/17 22:22 Ur Specific [place] >=1.030 (1.002-1.030) H 07/26/17 22:22 Urine Protein 100 mg/dL (NEGATIVE) H 07/26/17 22:22 Urine Glucose (UA) NEGATIVE mg/dL (NEGATIVE) 07/26/17 22:22 Urine Ketones NEGATIVE mg/dL (NEGATIVE) 07/26/17 22:22 Urine Occult Blood SMALL (NEGATIVE) H 07/26/17 22:22 Urine Nitrite NEGATIVE (NEGATIVE) 07/26/17 22:22 Urine Bilirubin NEGATIVE (NEGATIVE) 07/26/17 22:22 Urine Urobilinogen 0.2 (NORMAL) E.U./dL (NORMAL) 07/26/17 22:22 Ur Leukocyte Esterase NEGATIVE (NEGATIVE) 07/26/17 22:22 Urine RBC 6-10 /HPF (0-5) H 07/26/17 22:22 Urine WBC 0-3 /HPF (0-3) 07/26/17 22:22 Ur Squamous Epith Cells RARE Squamous (<= Few) 07/26/17 22:22 Amorphous Sediment Moderate /LPF 07/26/17 22:22 Urine Bacteria Rare /HPF (None Seen) 07/26/17 22:22 Urine Casts 3-5 Fine Granular /LPF 07/26/17 22:22 Ur Microscopic Review INDICATED 07/26/17 22:22 Urine Culture Comments NOT INDICATED 07/26/17 22:22 - Diagnostic Imaging Results Diagnostic Imaging Results: positive: Final report reviewed Diagnostic Imaging Results Comments: Abdominal ultrasound Impression: 1. Sonographic findings suspicious for acute cholecystitis. The gallbladder is distended. There is mild gallbladder wall thickening. There is cholelithiasis and positive sonographic Rizvi sign. 2. No intra-or extrahepatic bile duct dilatation. Issues/Core Measures - Anticipated LOS Anticipated Stay Length: 2 or more midnights - DVT/VTE - Prophylaxis VTE/DVT Prophylaxis med ordered at admit?: Yes
[2017-07-27] MEDS: NS W/20 MEQ KCL 1,000 ML IV SCH (05:55)
[2017-07-27] MEDS: ACETAMINOPHEN 325 MG TABLET PO PRN (05:55)
[2017-07-27] MEDS: SODIUM CHLORIDE FLUSH 0.9% 10 ML SYRINGE IVP SCH (06:01)
[2017-07-27 06:20] LABS: BASOPHILS % (AUTO) 0.4 %; HGB - HEMOGLOBIN 13.7 g/dL (14.0-18.0); LYMPHOCYTES % (AUTO) 7.4 %; MEAN CORPUSCULAR HGB CONC 34.4 g/dL (32.0-36.0); MEAN CORPUSCULAR VOLUME 90.1 fL (80.0-94.0); MEAN PLATELET VOLUME 7.8 fL (7.4-11.4); MONOCYTES % (AUTO) 8.2 %; RED BLOOD COUNT 4.44 10^6/uL (4.70-6.10)
[2017-07-27 06:27] LABS: INR 1.3 (0.8-1.2)
[2017-07-27 06:38] LABS: ALBUMIN/GLOBULIN RATIO 0.9 (1.0-2.2); BILIRUBIN,TOTAL 3.4 mg/dL (0.2-1.0); CALCIUM 8.1 mg/dL (8.5-10.3); CREATININE 1.1 mg/dL (0.6-1.2); MAGNESIUM 1.4 mg/dL (1.7-2.8); POTASSIUM 3.6 mmol/L (3.5-5.0); TOTAL PROTEIN 6.3 g/dL (6.7-8.2)
[2017-07-27 06:55] LABS: BAND NEUTROPHILS % (MANUAL) 5 %; LYMPHOCYTES % (MANUAL) 7 %; NEUTROPHILS % (MANUAL) 78 %; TOTAL CELLS COUNTED 100
[2017-07-27 06:56] LABS: NP AUTO DIFFERENTIAL? YES; NP MAN DIFFERENTIAL? NO; PLATELET ESTIMATE, MANUAL NORMAL (130-450,000) (NORMAL); PLATELET MORPHOLOGY NORMAL APPEARANCE (NORMAL)
[2017-07-27 07:32] LABS: HEMOGLOBIN A1C 0.82 g/dL
[2017-07-27 07:48] VITALS: BP 117/77
[2017-07-27] MEDS ORDERED: hydroCHLOROthiazide 12.5 MG CAPSULE PO SCH (09:00)
[2017-07-27] MEDS ORDERED: LISINOPRIL 20 MG TABLET PO SCH (09:00)
[2017-07-27] MEDS ORDERED: amLODIPine 5 MG TABLET PO SCH (09:00)
[2017-07-27] MEDS ORDERED: POLYETHYLENE GLYCOL 3350 17 GM PACKET PO SCH (09:00)
[2017-07-27] MEDS ORDERED: ATORVASTATIN 10 MG TABLET PO SCH (09:00)
[2017-07-27] MEDS ORDERED: FAMOTIDINE 20 MG TABLET PO SCH (09:00)
[2017-07-27] MEDS ORDERED: ENOXAPARIN 40 MG/0.4 ML SYRINGE SUBQ SCH (09:00)
[2017-07-27] MEDS: GABAPENTIN 300 MG CAPSULE PO SCH (09:14)
[2017-07-27] MEDS: SODIUM CHLORIDE FLUSH 0.9% 10 ML SYRINGE IVP PRN ×2 (09:21→11:26)
--- NOTE | 2017-07-27 09:24 | Discharge Plan ---
Discharge Plan Disposition: 02 Transfer Acute Care Hosp Condition: Stable Diet: Regular Activity Restrictions: No Restrictions Shower Restrictions: No Driving Restrictions: No Weight Bearing: Full Weight Instruction Topics: Cholecystectomy, ERCP Additional Instructions or Follow Up instructions: PATIENT WAS TO BE TRANSFERRED TO [facility] FOR GI CONSULT AND ADMITTING WITH DR AVALOS WITH SURGERY ERCP PENDING. PATIENT TO BE DISCHARGED ON ALL MEDICATIONS FROM HOME AND IV ZOSYN PATIENT VERBALLY AGREED TO TRANSFER FOR SERVICES NOT HERE AT [facility] No Smoking: If you smoke, Please STOP! Call for help.
--- NOTE | 2017-07-27 09:26 | DISCHARGE SUMMARY ---
"Discharge Summary Admit Date: 07/26/17 Discharge Date: 07/27/17 Discharging Provider: JADEN LEDEZMA APRN Primary Care Provider: NO PCP Code Status: Attempt Resuscitation Condition at Discharge: Serious Discharge Disposition: 02 Transfer Acute Care Hosp Discharge Facility Name: home - DIAGNOSES Admission Diagnoses: 1. ACUTE SEPSIS, UNSPECIFIED 2. ACUTE CHOLECYSTITIS 3. ACUTE HYPOKALEMIA 4. HYPONATREMIA WITH HYPO-OSMOLALITY 5. 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 UNSPECIFIED ASTHMA, UNCOMPLICATED 7. HYPERLIPIDEMIA, UNSPECIFIED 8. ESSENTIAL PRIMARY HYPERTENSION Discharge Diagnoses with Status of Each Condition: 1. ACUTE SEPSIS WITH LEUKOCYTOSIS SECONDARY TO PROBABLE ACUTE CHOLEANGITIS 2. ACUTE CHOLELITHIASIS POSSIBLE CHOLECYSTITIS 3. ACUTE HYPOKALEMIA AND OTHER ELECTROLYTE ABNORMALITIES 4. HYPONATREMIA WITH HYPO-OSMOLALITY 5. 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 UNSPECIFIED ASTHMA, UNCOMPLICATED 7. MIXED HYPERLIPIDEMIA 8. ESSENTIAL PRIMARY HYPERTENSION - HPI History of Present Illness: History of Present Illness HPI Comment/Other: Patient is a 51-year-old gentleman with a past medical history significant for type 2 diabetes, hypertension, hyperlipidemia, chronic sinusitis and asthma who presented to the emergency department with a chief complaint of abdominal pain. The patient states that he was in his normal state of health until Friday evening at 7 PM when he began having abdominal pain. Patient states that the pain was initially located in the right upper quadrant and it was sharp. He states the pain persisted so he went to the emergency department that evening. He was evaluated in our emergency department and underwent routine lab work which was all within normal limits and an abdominal ultrasound which did not show any gallbladder wall thickening but the patient did have a positive Rizvi sign which could have been suggestive of early cholecystitis. Patient was given pain medications and discharged home. The patient states that after returning home he has had persistent right upper quadrant abdominal pain which now he states has become diffuse and radiates down into his back. Patient describes the pain as a sharp pain that is unrelenting. He states that the pain is about a 7 out of 10. The patient states that he has been unable to eat almost anything over the last several days because of the pain and decreased appetite. The patient does admit to having a fever at home but denies any nausea or vomiting. The patient states that he took 3 pills of Vicodin that was prescribed to him today and had no relief of the pain and therefore finally decided to come back into the emergency department. The patient otherwise denies any headaches, blurred vision, runny nose, sore throat, nasal congestion, difficulty swallowing, throat pain, chest pain, shortness of air, orthopnea, PND, increased lower extremity swelling, chills, diarrhea, constipation, urinary urgency, urinary frequency, dysuria, joint pains , muscle aches, joint swelling, recent unintentional weight loss, polydipsia, changes in his skin, hair loss or any focal neurologic deficits. On presentation to the emergency department the patient was afebrile and vital signs were initially all within normal limits but the patient did appear to be in significant distress due to his abdominal pain. Later the patient spiked a temperature up to 38.3 and became tachycardic but was normotensive. The patient underwent routine lab work which did show a leukocytosis of 29.8, hypo- natremia of 133 and hypokalemia of 3.2. The patient's lactic acid was within normal limits. The patient underwent a repeat ultrasound of his abdomen this time the ultrasound shows sonographic findings suspicious for acute cholecystitis with a distended gallbladder and mild gallbladder wall thickening. The emergency room physician spoke with the surgeon it support consultant Dr. Eugenio Romeo who evaluated the patient in the emergency department. The surgeon requested that the hospitalist team admit the patient and give the patient IV antibiotics and fluids overnight and that he would take the patient to the OR for a laparoscopic cholecystectomy tomorrow morning at 9 AM. The patient was made n.p.o. for the procedure. - CONSULTS | PROCEDURES Consultations: SURGERY Procedures: ULTRASOUND OF ABDOMEN SHOWED ACUTE CHOLECYSTITIS WITH WALL THICKENING. - HOSPITAL COURSE Hospital Course: PATIENT WAS ADMITTED WITH RIGHT UPPER QUADRANT PAIN AND PROBABLE CHOLECYSTITIS. SURGERY WAS ASKED TO CONSULT 1. ACUTE SEPSIS WITH LEUKOCYTOSIS SECONDARY TO PROBABLE ACUTE CHOLEANGITIS Patient was started on IV Zosyn with blood cultures drawn. Tylenol for fever. CBC to monitor white count. monitor for changes in vital signs. IVF NS for hydration. IV Zofran for nausea. surgery consulted for surgery evaluation. patient needed an ERCP not available at [facility] and needed to transfer to [facility] for ERCP. 2. ACUTE CHOLELITHIASIS POSSIBLE CHOLECYSTITIS Patient had an ultrasound showing an acute gallbladder from a biliary bstruction or gallstones in the gallbladder. He now is febrile and with elevated WBC. Tachycardic and with pain to right upper quadrant. surgery consulted and suggested an ERCP. [facility] will be able to take patient for further intervenions for gallbladder. 3. ACUTE HYPOKALEMIA AND OTHER ELECTROLYTE ABNORMALITIES Patient received IV potassium and IVF for hydration. monitored electrolytes with daily lab draws. 4. HYPONATREMIA WITH HYPO-OSMOLALITY Patient received IVF NS for gentle hydration and monitored sodium levels with daily lab draws. 5. INSULIN DEPENDENT DIABETES MELLITUS WITHOUT COMPLICATIONS Patient remained on sliding scale insulin and diabetic diet. 6. UNSPECIFIED ASTHMA, UNCOMPLICATED Patient received supplemental oxygen as needed and continued on inhaler as needed with RT support as needed. 7. MIXED HYPERLIPIDEMIA Patient remained on his statin and lipid profile checked 8. ESSENTIAL PRIMARY HYPERTENSION Patient continued on home dosage of blood pressure medications DVT prophylaxis with Lovenox and SCD Status: patient is full code After evaluation from surgery, decided that patient needed an ERCP before decision for surgical intervention. [facility] is not able to do this procedure. He was transferred to [facility] under the care of Dr Lima and Dr Melgar (GI) for pending ERCP and possible cholecystitis surgical intervention. He was transported by ground BLS with IVF and IV medications for pain and nausea. He was aware of transfer and agreeable. Vital signs were stable at discharge. - ALLERGIES Allergies/Adverse Reactions: Allergies Allergy/AdvReac Type Severity Reaction Status Date / Time No Known Drug Allergies Allergy Verified 07/23/17 21:57 - MEDICATIONS Home Medications: Ambulatory Orders Medication Instructions Recorded Confirmed Amlodipine Besylate 10 mg PO DAILY 07/23/17 07/26/17 Atorvastatin [Lipitor] 10 mg PO DAILY 07/23/17 07/26/17 Gabapentin 300 mg PO BID 07/23/17 07/26/17 Hydrochlorothiazide 12.5 mg PO DAILY 07/23/17 07/26/17 Lisinopril 20 mg PO DAILY 07/23/17 07/26/17 Loratadine 10 mg PO DAILY 07/23/17 07/26/17 Montelukast [Singulair] 10 mg PO QPM 07/23/17 07/26/17 Ondansetron Odt [Zofran Odt] 4 mg TL Q6H PRN #10 tablet 07/23/17 07/26/17 Oxycodone HCl/Acetaminophen 1 - 2 each PO Q6H PRN #10 tablet 07/23/17 07/26/17 [Percocet 5-325 mg Tablet] metFORMIN [Glucophage] 500 mg PO BID 07/23/17 07/26/17 - PHYSICAL EXAM AT DISCHARGE General Appearance: positive: No acute distress, Alert Eyes Bilateral: positive: Normal inspection, PERRL, EOMI ENT: positive: ENT inspection nml, Pharynx nml, No signs of dehydration Neck: positive: Nml inspection, Thyroid nml, No JVD, Trachea midline Respiratory: positive: Chest non-tender, No respiratory distress, Breath sounds nml Cardiovascular: positive: No murmur, No gallop, Tachycardia Peripheral Pulses: positive: 2+ Abdomen: positive: No organomegaly, Tenderness, Guarding Extremities: positive: Non-tender, Full ROM, Nml appearance, No pedal edema Neurologic/Psychiatric: positive: Oriented x3, CN's nml (2-12), Motor nml, Sensation nml, Mood/affect nml - LABS Result Diagrams: 07/27/17 06:09 07/27/17 06:09 Other Lab Results: Abnormal Lab Results 07/26/17 07/26/17 07/26/17 18:33 18:33 22:22 WBC 29.8 x10^3/uL H x10^3/uL (4.8-10.8) RBC Hgb Hct Neutrophils # (Manual) 26.5 10^3/uL H 10^3/uL (1.5-6.6) Lymphocytes # (Manual) 0.6 10^3/uL L 10^3/uL (1.5-3.5) Monocytes # (Manual) 2.7 10^3/uL H 10^3/uL (0.0-1.0) PT INR Sodium 133 mmol/L L mmol/L (135-145) Potassium 3.2 mmol/L L mmol/L (3.5-5.0) Chloride 91 mmol/L L mmol/L (101-111) Anion Gap 16.0 H (6-13) Estimated GFR (MDRD) 64 L (>89) Glucose 225 mg/dL H mg/dL (70-100) POC Whole Bld Glucose Glycated Hemoglobin Estim Average Glucose Calcium Magnesium Total Bilirubin 1.2 mg/dL H mg/dL (0.2-1.0) AST ALT Alkaline Phosphatase Total Protein Albumin Albumin/Globulin Ratio Lipase 21 U/L L U/L (22-51) Ur Specific [place] >=1.030 H (1.002-1.030) Urine Protein 100 mg/dL H mg/dL (NEGATIVE) Urine Occult Blood SMALL H (NEGATIVE) Urine RBC 6-10 /HPF H /HPF (0-5) 07/26/17 07/27/17 07/27/17 23:47 05:45 06:09 WBC 22.0 x10^3/uL H x10^3/uL (4.8-10.8) RBC 4.44 10^6/uL L 10^6/uL (4.70-6.10) Hgb 13.7 g/dL L g/dL (14.0-18.0) Hct 40.0 % L % (42.0-52.0) Neutrophils # (Manual) 18.3 10^3/uL H 10^3/uL (1.5-6.6) Lymphocytes # (Manual) Monocytes # (Manual) 1.3 10^3/uL H 10^3/uL (0.0-1.0) PT INR Sodium Potassium Chloride Anion Gap Estimated GFR (MDRD) Glucose POC Whole Bld Glucose 207 mg/dL H mg/dL 197 mg/dL H mg/dL (70 - 100) (70 - 100) Glycated Hemoglobin Estim Average Glucose Calcium Magnesium Total Bilirubin AST ALT Alkaline Phosphatase Total Protein Albumin Albumin/Globulin Ratio Lipase Ur Specific [place] Urine Protein Urine Occult Blood Urine RBC 07/27/17 07/27/17 07/27/17 06:09 06:09 06:09 WBC RBC Hgb Hct Neutrophils # (Manual) Lymphocytes # (Manual) Monocytes # (Manual) PT 15.0 secs H secs (9.9-12.6) INR 1.3 H (0.8-1.2) Sodium Potassium Chloride 98 mmol/L L mmol/L (101-111) Anion Gap Estimated GFR (MDRD) 70 L (>89) Glucose 190 mg/dL H mg/dL (70-100) POC Whole Bld Glucose Glycated Hemoglobin 7.4 % H % (4.6-6.2) Estim Average Glucose 166 H (70-100) Calcium 8.1 mg/dL L mg/dL (8.5-10.3) Magnesium 1.4 mg/dL L mg/dL (1.7-2.8) Total Bilirubin 3.4 mg/dL H mg/dL (0.2-1.0) AST 491 IU/L H IU/L (10-42) ALT 469 IU/L H IU/L (10-60) Alkaline Phosphatase 193 IU/L H IU/L (42-121) Total Protein 6.3 g/dL L g/dL (6.7-8.2) Albumin 3.0 g/dL L g/dL (3.2-5.5) Albumin/Globulin Ratio 0.9 L (1.0-2.2) Lipase Ur Specific [place] Urine Protein Urine Occult Blood Urine RBC 07/27/17 11:24 WBC RBC Hgb Hct Neutrophils # (Manual) Lymphocytes # (Manual) Monocytes # (Manual) PT INR Sodium Potassium Chloride Anion Gap Estimated GFR (MDRD) Glucose POC Whole Bld Glucose 186 mg/dL H mg/dL (70 - 100) Glycated Hemoglobin Estim Average Glucose Calcium Magnesium Total Bilirubin AST ALT Alkaline Phosphatase Total Protein Albumin Albumin/Globulin Ratio Lipase Ur Specific [place] Urine Protein Urine Occult Blood Urine RBC - DIAGNOSTIC IMAGING Diagnostic Imaging Results: Final report reviewed - FOLLOW UP Follow Up: patient understood he would be transferred to [facility] and in agreement to transfer. He was admitted under Dr Lima and Dr Melgar with GI. He will be going for an ERCP and possible surgery for cholecystitis. - TIME SPENT Time Spent in Discharge (Minutes): 45 (discharge planning and assessment)"
--- NOTE | 2017-07-27 11:11 | PROVIDER PROGRESS NOTE ---
Subjective - Prog Note Date Prog Note Date: 07/27/17 Prog Note Time: 11:09 - Subjective Pt reports feeling: No change Subjective: Pt continues to c/o epigastric and RUQ pain radiating into back, no N/V; had nl bm yesterday, voiding well. Current Medications - Current Medications Current Medications: Active Medications Generic Name Dose Route Start Last Admin Trade Name Freq PRN Reason Stop Dose Admin Acetaminophen 650 mg 07/26/17 19:57 07/27/17 05:55 Tylenol PO 650 mg Q4HR PRN Administration Pain 1 to 4 Amlodipine Besylate 10 mg 07/27/17 09:00 07/27/17 09:14 Norvasc PO 10 mg DAILY ADELINA Administration Atorvastatin Calcium 10 mg 07/27/17 09:00 07/27/17 09:14 Lipitor PO 10 mg QPM ADELINA Administration Enoxaparin Sodium 40 mg 07/27/17 09:00 07/27/17 09:14 Lovenox SUBQ 40 mg DAILY ADELINA Administration Famotidine 20 mg 07/27/17 09:00 07/26/17 21:06 Pepcid PO 20 mg DAILY ADELINA Administration Gabapentin 300 mg 07/26/17 21:00 07/27/17 09:14 Neurontin PO 300 mg BID ADELINA Administration Hydrochlorothiazide 12.5 mg 07/27/17 09:00 07/27/17 09:14 Hydrodiuril PO 12.5 mg DAILY ADELINA Administration Piperacillin Sod/Tazobactam 100 mls @ 200 mls/hr 07/27/17 00:00 07/27/17 06: 33 Sod 3.375 gm/ Sodium Chloride IV Infused Q6HR ADELINA Infusion Potassium Chloride/Sodium Chloride 1,000 mls @ 150 mls/hr 07/26/17 20:00 06:33 Normal Saline 0.9% W/20 Meq Kcl IV 150 mls/hr .Q6H40M ADELINA Infusion Insulin Human Regular 1 - 5 unit 07/27/17 00:00 07/27/17 05:56 Novolin R SUBQ 2 unit Q6HR ADELINA Administration Protocol Lisinopril 20 mg 07/27/17 09:00 07/27/17 09:21 Zestril PO 20 mg DAILY ADELINA Administration Montelukast Sodium 10 mg 07/26/17 21:00 07/26/17 20:52 Singulair PO 10 mg QPM ADELINA Administration Morphine Sulfate 2 mg 07/26/17 19:57 07/27/17 03:22 Morphine IVP 2 mg Q2H PRN Administration Pain 8 to 10 Ondansetron HCl 4 mg 07/26/17 19:57 Zofran Inj IVP Q6HR PRN Nausea / Vomiting Oxycodone HCl 5 mg 07/26/17 19:57 07/27/17 07:39 Roxicodone PO 5 mg Q4HR PRN Administration Pain 5 to 7 Oxycodone HCl 10 mg 07/26/17 19:57 07/27/17 00:48 Roxicodone PO 10 mg Q4HR PRN Administration Pain 8 to 10 Polyethylene Glycol 17 gm 07/27/17 09:00 07/27/17 09:15 Miralax PO Not Given DAILY ADELINA Prochlorperazine Edisylate 10 mg 07/26/17 19:57 Compazine Inj IVP Q6HR PRN Nausea / Vomiting Promethazine HCl 25 mg 07/26/17 19:57 Phenergan Inj IM Q6HR PRN Nausea / Vomiting Sodium Chloride 10 ml 07/26/17 19:57 07/27/17 09:21 Normal Saline Flush 0.9% IVP 10 ml PRN PRN Administration NEEDED PER PROVIDER ORDERS Sodium Chloride 10 ml 07/26/17 22:00 07/27/17 06:01 Normal Saline Flush 0.9% IVP Not Given Q8HR ADELINA Zolpidem Tartrate 5 mg 07/26/17 19:57 Ambien PO QPM PRN Insomnia Amlodipine Besylate 10 mg PO DAILY 07/23/17 Atorvastatin [Lipitor] 10 mg PO DAILY 07/23/17 Gabapentin 300 mg PO BID 07/23/17 Hydrochlorothiazide 12.5 mg PO DAILY 07/23/17 Lisinopril 20 mg PO DAILY 07/23/17 Loratadine 10 mg PO DAILY 07/23/17 Montelukast [Singulair] 10 mg PO QPM 07/23/17 metFORMIN [Glucophage] 500 mg PO BID 07/23/17 Objective - Vital Signs/Intake & Output Vital Signs: Vital Signs x48h Temp Pulse Resp BP Pulse Ox 07/27/17 07:47 37.8 C H 110 H 18 117/77 92 Tmax 38.3/24 hours. Intake & Output: Intake & Output 07/24/17 07/25/17 07/26/17 07/27/17 23:59 23:59 23:59 23:59 Intake Total 762.5 1162.5 Output Total 350 300 Balance 412.5 862.5 - Objective General Appearance: positive: Mild distress Eyes Bilateral: positive: Other (mild scleral icterus). negative: No scleral icterus Eyes: OU Scleral icterus (mild) ENT: positive: Pharynx nml, No signs of dehydration Neck: positive: No JVD Respiratory: positive: No respiratory distress Abdomen: positive: Tenderness, Guarding, Rebound, Other (tenderness with guarding over epigastrium and RUQ with localized peritoneal signs and + Rizvi' s sign). negative: Hepatomegaly, Splenomegaly, Mass Skin: positive: Color nml, Warm, Dry Extremities: positive: No pedal edema. negative: Calf tenderness Neurologic/Psychiatric: positive: Oriented x3 - Lab Results Fish Bones: 07/27/17 06:09 07/27/17 06:09 Other Labs: Lab Results x24hrs 07/27/17 07/27/17 07/27/17 Range/Units 06:09 06:09 06:09 WBC (4.8-10.8) x10^3/uL RBC (4.70-6.10) 10^6/uL Hgb (14.0-18.0) g/dL Hct (42.0-52.0) % MCV (80.0-94.0) fL MCH (27.0-31.0) pg MCHC (32.0-36.0) g/dL RDW (12.0-15.0) % Plt Count (130-450) 10^3/uL MPV (7.4-11.4) fL Neut # Lymph # [place] # Eos # Baso # Absolute Nucleated RBC Total Counted Band Neuts % (Manual) (0 - 10) % Reactive Lymphs % (Man) % Nucleated RBC % Neutrophils # (Manual) (1.5-6.6) 10^3/uL Lymphocytes # (Manual) (1.5-3.5) 10^3/uL Monocytes # (Manual) (0.0-1.0) 10^3/uL Differential Comment Platelet Estimate (NORMAL) Platelet Morphology (NORMAL) RBC Morph Micro Appear (NORMAL) PT (9.9-12.6) secs INR (0.8-1.2) Sodium 135 (135-145) mmol/L Potassium 3.6 (3.5-5.0) mmol/L Chloride 98 L (101-111) mmol/L Carbon Dioxide 25 (21-32) mmol/L Anion Gap 12.0 (6-13) BUN 14 (6-20) mg/dL Creatinine 1.1 (0.6-1.2) mg/dL Estimated GFR (MDRD) 70 L (>89) Glucose 190 H (70-100) mg/dL POC Whole Bld Glucose (70 - 100) mg/dL Glycated Hemoglobin 7.4 H (4.6-6.2) % Estim Average Glucose 166 H (70-100) Lactic Acid 1.3 (0.5-2.2) mmol/L Calcium 8.1 L (8.5-10.3) mg/dL Phosphorus 3.0 (2.5-4.6) mg/dL Magnesium 1.4 L (1.7-2.8) mg/dL Total Bilirubin 3.4 H (0.2-1.0) mg/dL AST 491 H (10-42) IU/L ALT 469 H (10-60) IU/L Alkaline Phosphatase 193 H (42-121) IU/L Total Protein 6.3 L (6.7-8.2) g/dL Albumin 3.0 L (3.2-5.5) g/dL Globulin 3.3 (2.1-4.2) g/dL Albumin/Globulin Ratio 0.9 L (1.0-2.2) Urine Color Urine Clarity (CLEAR) Urine pH (5.0-7.5) PH Ur Specific [place] (1.002-1.030) Urine Protein (NEGATIVE) mg/dL Urine Glucose (UA) (NEGATIVE) mg/dL Urine Ketones (NEGATIVE) mg/dL Urine Occult Blood (NEGATIVE) Urine Nitrite (NEGATIVE) Urine Bilirubin (NEGATIVE) Urine Urobilinogen (NORMAL) E.U./dL Ur Leukocyte Esterase (NEGATIVE) Urine RBC (0-5) /HPF Urine WBC (0-3) /HPF Ur Squamous Epith Cells (<= Few) Amorphous Sediment /LPF Urine Bacteria (None Seen) /HPF Urine Casts /LPF Ur Microscopic Review Urine Culture Comments 07/27/17 07/27/17 07/27/17 Range/Units 06:09 06:09 05:45 WBC 22.0 H (4.8-10.8) x10^3/uL RBC 4.44 L (4.70-6.10) 10^6/uL Hgb 13.7 L (14.0-18.0) g/dL Hct 40.0 L (42.0-52.0) % MCV 90.1 (80.0-94.0) fL MCH 31.0 (27.0-31.0) pg MCHC 34.4 (32.0-36.0) g/dL RDW 13.0 (12.0-15.0) % Plt Count 242 (130-450) 10^3/uL MPV 7.8 (7.4-11.4) fL Neut # Not Reportable Lymph # Not Reportable [place] # Not Reportable Eos # Not Reportable Baso # Not Reportable Absolute Nucleated RBC Not Reportable Total Counted 100 Band Neuts % (Manual) 5 (0 - 10) % Reactive Lymphs % (Man) 4 % Nucleated RBC % Not Reportable Neutrophils # (Manual) 18.3 H (1.5-6.6) 10^3/uL Lymphocytes # (Manual) 2.4 (1.5-3.5) 10^3/uL Monocytes # (Manual) 1.3 H (0.0-1.0) 10^3/uL Differential Comment MANUAL DIFFERENTIAL Platelet Estimate NORMAL (130-450,000) (NORMAL) Platelet Morphology NORMAL APPEARANCE (NORMAL) RBC Morph Micro Appear NORMAL APPEARANCE (NORMAL) PT 15.0 H (9.9-12.6) secs INR 1.3 H (0.8-1.2) Sodium (135-145) mmol/L Potassium (3.5-5.0) mmol/L Chloride (101-111) mmol/L Carbon Dioxide (21-32) mmol/L Anion Gap (6-13) BUN (6-20) mg/dL Creatinine (0.6-1.2) mg/dL Estimated GFR (MDRD) (>89) Glucose (70-100) mg/dL POC Whole Bld Glucose 197 H (70 - 100) mg/dL Glycated Hemoglobin (4.6-6.2) % Estim Average Glucose (70-100) Lactic Acid (0.5-2.2) mmol/L Calcium (8.5-10.3) mg/dL Phosphorus (2.5-4.6) mg/dL Magnesium (1.7-2.8) mg/dL Total Bilirubin (0.2-1.0) mg/dL AST (10-42) IU/L ALT (10-60) IU/L Alkaline Phosphatase (42-121) IU/L Total Protein (6.7-8.2) g/dL Albumin (3.2-5.5) g/dL Globulin (2.1-4.2) g/dL Albumin/Globulin Ratio (1.0-2.2) Urine Color Urine Clarity (CLEAR) Urine pH (5.0-7.5) PH Ur Specific [place] (1.002-1.030) Urine Protein (NEGATIVE) mg/dL Urine Glucose (UA) (NEGATIVE) mg/dL Urine Ketones (NEGATIVE) mg/dL Urine Occult Blood (NEGATIVE) Urine Nitrite (NEGATIVE) Urine Bilirubin (NEGATIVE) Urine Urobilinogen (NORMAL) E.U./dL Ur Leukocyte Esterase (NEGATIVE) Urine RBC (0-5) /HPF Urine WBC (0-3) /HPF Ur Squamous Epith Cells (<= Few) Amorphous Sediment /LPF Urine Bacteria (None Seen) /HPF Urine Casts /LPF Ur Microscopic Review Urine Culture Comments 07/26/17 07/26/17 07/26/17 Range/Units 23:47 22:22 20:20 WBC (4.8-10.8) x10^3/uL RBC (4.70-6.10) 10^6/uL Hgb (14.0-18.0) g/dL Hct (42.0-52.0) % MCV (80.0-94.0) fL MCH (27.0-31.0) pg MCHC (32.0-36.0) g/dL RDW (12.0-15.0) % Plt Count (130-450) 10^3/uL MPV (7.4-11.4) fL Neut # Lymph # [place] # Eos # Baso # Absolute Nucleated RBC Total Counted Band Neuts % (Manual) (0 - 10) % Reactive Lymphs % (Man) % Nucleated RBC % Neutrophils # (Manual) (1.5-6.6) 10^3/uL Lymphocytes # (Manual) (1.5-3.5) 10^3/uL Monocytes # (Manual) (0.0-1.0) 10^3/uL Differential Comment Platelet Estimate (NORMAL) Platelet Morphology (NORMAL) RBC Morph Micro Appear (NORMAL) PT (9.9-12.6) secs INR (0.8-1.2) Sodium (135-145) mmol/L Potassium (3.5-5.0) mmol/L Chloride (101-111) mmol/L Carbon Dioxide (21-32) mmol/L Anion Gap (6-13) BUN (6-20) mg/dL Creatinine (0.6-1.2) mg/dL Estimated GFR (MDRD) (>89) Glucose (70-100) mg/dL POC Whole Bld Glucose 207 H (70 - 100) mg/dL Glycated Hemoglobin (4.6-6.2) % Estim Average Glucose (70-100) Lactic Acid 1.7 (0.5-2.2) mmol/L Calcium (8.5-10.3) mg/dL Phosphorus (2.5-4.6) mg/dL Magnesium (1.7-2.8) mg/dL Total Bilirubin (0.2-1.0) mg/dL AST (10-42) IU/L ALT (10-60) IU/L Alkaline Phosphatase (42-121) IU/L Total Protein (6.7-8.2) g/dL Albumin (3.2-5.5) g/dL Globulin (2.1-4.2) g/dL Albumin/Globulin Ratio (1.0-2.2) Urine Color YELLOW Urine Clarity HAZY (CLEAR) Urine pH 5.5 (5.0-7.5) PH Ur Specific [place] >=1.030 H (1.002-1.030) Urine Protein 100 H (NEGATIVE) mg/dL Urine Glucose (UA) NEGATIVE (NEGATIVE) mg/dL Urine Ketones NEGATIVE (NEGATIVE) mg/dL Urine Occult Blood SMALL H (NEGATIVE) Urine Nitrite NEGATIVE (NEGATIVE) Urine Bilirubin NEGATIVE (NEGATIVE) Urine Urobilinogen 0.2 (NORMAL) (NORMAL) E.U./dL Ur Leukocyte Esterase NEGATIVE (NEGATIVE) Urine RBC 6-10 H (0-5) /HPF Urine WBC 0-3 (0-3) /HPF Ur Squamous Epith Cells RARE Squamous (<= Few) Amorphous Sediment Moderate /LPF Urine Bacteria Rare (None Seen) /HPF Urine Casts 3-5 Fine Granular /LPF Ur Microscopic Review INDICATED Urine Culture Comments NOT INDICATED Lipase nl yesterday Assessment/Plan - Problem List (1) Acute cholangitis due to calculus of bile duct with obstruction Impression: Clinically sepsis appears to be improving and is likely due to acute cholangitis due to choledocholithiasis with biliary obstruction. Rec: urgent ERCP with stone extraction, followed by elective laparoscopic cholecystectomy if there is no other evidence to suggest concurrent acute cholecystitis. If acute cholecystitis is also present, this can be managed by post-ERCP urgent laparoscopic cholecystectomy or percutaneous drainage if pt becomes unstable medically. Discussed with Dr. Landon, who will arrange for transfer to facility where these services are available. Discussed with patient who also is in agreement with this plan. (2) Cholelithiasis with acute cholangitis with biliary obstruction Impression: See above for acute cholangitis; it is unclear whether acute cholecystitis is present or whether all sx are due to cholangitis and biliary obstruction. Minimal gallbladder wall thickening and minimal pericholecystic fluid together with the presence of jaundice and sepsis suggests the latter; recommend ERCP with additional treatment based on the findings at that procedure and clinical response. Discussed with patient and Dr. Landon.
[2017-07-27] MEDS ORDERED: SCOPOLAMINE PATCH TOP SCH (11:22)
[2017-07-27] MEDS ORDERED: IBUPROFEN 100 MG/5 ML UDC ONE (17:13)
== END 2017-07-27 11:55 | disposition short-term general hospital (02) | DRG 872 ==
LOC: ED 18:09 → MS2 19:57
PROVIDERS: ADMIT Internal Medicine; ATTEND Nurse Practitioner
DX: A41.9 Sepsis, unspecified organism (principal); K83.0 Cholangitis; K80.00 Calculus of gallbladder with acute cholecystitis without obstruction; E87.1 Hypo-osmolality and hyponatremia; E87.6 Hypokalemia; E86.0 Dehydration; E86.1 Hypovolemia; T50.2X5A Adverse effect of carbonic-anhydrase inhibitors, benzothiadiazides and other diuretics, initial encounter; E11.42 Type 2 diabetes mellitus with diabetic polyneuropathy; J45.909 Unspecified asthma, uncomplicated; J32.9 Chronic sinusitis, unspecified; E78.2 Mixed hyperlipidemia; I10 Essential (primary) hypertension; K21.9 Gastro-esophageal reflux disease without esophagitis; Z79.84 Long term (current) use of oral hypoglycemic drugs; Z83.79 Family history of other diseases of the digestive system
CPT/HCPCS: 36415; 76705; 80053; 81001; 81003; 83036; 83605; 83690; 83735; 84100; 85025; 85610; 87040; 87086; 96361; 96365; 96375; 96376; 99282; 99283; 99285

== ENCOUNTER 2017-09-10 07:03 | Outpatient (CLI) | payer OTHER ==
[2017-09-10] MEDS ORDERED: GADOBUTROL 10 MMOL/10 ML VIAL ONE (07:19)
[2017-09-10] MEDS ORDERED: GADOBUTROL 10 MMOL/10 ML VIAL IVP ONE (08:46)
[2017-09-10] MEDS ORDERED: BARIUM SULFATE 450 ML BOTTLE PO ONE (08:55)
--- NOTE | 2017-09-10 16:58 | MRI Report ---
EXAM: MR ABDOMEN WITH AND WITHOUT CONTRAST (MR PANCREAS AND MRCP) EXAM DATE: 09/10/2017 08:55 AM. CLINICAL HISTORY: ABN GI IMAGING. Assess for stone or neoplasm of bile duct. Persistent right upper q uadrant pain. Cholecystectomy 3 weeks ago. COMPARISON: Right upper quadrant abdominal ultrasound 07/26/2017. TECHNIQUE: Multiplanar breath-hold T1, T2, and DWI sequences obtained through the pancreas and abdome n on an MR scanner. Dedicated 2D and 3D MRCP sequences obtained through the biliary and pancreatic du cts. Images obtained before and after administration of 10 mL Gadavist intravenous contrast. Patient ingested 900 mL Redicat for oral contrast. Multiphase postcontrast sequences obtained through the steward creas. FINDINGS: Lung Bases: The lung bases are clear. Liver: The liver has normal size, morphology and signal. No evidence of mass. The intrahepatic ducts appear normal. CBD: The CBD appears normal and measures 4 mm in diameter. No choledocholithiasis. Gallbladder: Surgically absent. Pancreas: Pancreas divisum. The pancreatic duct measures 1-2 mm in diameter and appears normal with n o stone or stricture. Spleen: The spleen appears normal. Kidneys and Adrenals: The kidneys appear normal with no mass or hydronephrosis. 4.8 cm simple anterio r right renal cyst. The adrenals appear normal. Bowel: The small bowel and colon appear normal with no inflammation or obstruction. Retroperitoneum: The retroperitoneal structures appear normal with no mass or lymphadenopathy. IMPRESSION: 1. Interval cholecystectomy since prior ultrasound. No abnormal fluid collection. Normal 4 mm CBD. No choledocholithiasis. No bile duct inflammation or mass evident. 2. Pancreas divisum. No MR evidence for pancreatitis. 3. Simple right renal cyst. [facility] Referring Provider Line: [phone] SITE ID: [id number]
== END 2017-09-10 07:04 | disposition home or self-care (01) ==
LOC: DI 07:03
PROVIDERS: ATTEND Internal Medicine
DX: N28.1 Cyst of kidney, acquired (principal); Z90.49 Acquired absence of other specified parts of digestive tract
CPT/HCPCS: 74183; A9270; A9585

== ENCOUNTER 2017-09-13 12:06 | Outpatient (CLI) | payer OTHER ==
[~2017-09-13 12:06] MED LIST: GADOBUTROL 10 MMOL/10 ML VIAL ONE
[2017-09-13] MEDS ORDERED: GADOBUTROL 10 MMOL/10 ML VIAL IVP ONE (13:56)
--- NOTE | 2017-09-13 22:15 | MRI Report ---
EXAM: RIGHT FOREFOOT MRI WITHOUT AND WITH CONTRAST EXAM DATE: 09/13/2017 02:42 PM. CLINICAL HISTORY: Mass at the right forefoot for 10 years. COMPARISON: None. TECHNIQUE: Multiplanar, multisequence T1-weighted and fluid-sensitive sequences of the forefoot befor e and after administration of intravenous contrast. IV contrast: 9 m Gadavist. Other: None. FINDINGS: Bones: Tiny subcortical cyst at the first metatarsal head. No acute fracture or bone lesions. Joints: No subluxations. No effusions. The qzlash-mwgjelfe-augcbwrshp complex is unremarkable. The vi sualized plantar plates are unremarkable. Articular Cartilage: Mild to moderate chondromalacia at the first metatarsophalangeal joint. Ligaments: The visualized collateral ligaments are intact. Tendons: The flexor and extensor tendons are unremarkable. Musculature: No edema or fatty atrophy. Other: No Mortons neuroma. Small amount of fluid at the third and first intermetatarsal bursae. Ther e is an approximately 2.7 x 1.2 x 2 cm lobular multiseptated homogeneously enhancing mass within the distal medial aspect of the plantar fascia. The mass is isointense to muscle on the T1-weighted image s and T2-weighted images. IMPRESSION: 1. An approximately 2.7 x 1.2 x 2 cm enhancing lobular, multiseptated mass within the distal medial a spect of the plantar fascia which most likely represents a fibroma. Focal pigmented villonodular syno vitis (giant cell tumor of the tendon sheath) cannot be excluded, but is thought to be less likely. 2. 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 [facility] MUSCULOSKELETAL RADIOLOGY SECTION Referring Provider Line: [phone] SITE ID: [id number]
--- NOTE | 2017-09-13 22:15 | MRI Report ---
EXAM: LEFT FOREFOOT MRI WITHOUT AND WITH CONTRAST EXAM DATE: 09/13/2017 02:42 PM. CLINICAL HISTORY: Left foot mass for 10 years. COMPARISON: None. TECHNIQUE: Multiplanar, multisequence T1-weighted and fluid-sensitive sequences of the forefoot befor e and after administration of intravenous contrast. IV contrast: 9 mL Gadavist. Other: None. FINDINGS: Bones: Small subchondral cyst and marrow edema at the first metatarsal head. No acute fracture or bon e lesions. Small subcortical cyst and marrow edema at the distal lateral aspect of the lateral cuneif orm. Joints: No subluxations. No effusions. The fsapbf-ptewpthx-gltplnpxaf complex is unremarkable. The vi sualized plantar plates are unremarkable. Articular Cartilage: Focal grade 3-4 chondromalacia at the first metatarsal head. Ligaments: The visualized collateral ligaments are intact. Tendons: The flexor and extensor tendons are unremarkable. Musculature: Mild edema within the distal aspect of the second and third interosseous muscles. Other: No Mortons neuroma. No intermetatarsal bursitis. There is an approximately 2.8 x 2 x 1.1 cm l obular and multiseptated enhancing mass within the distal medial aspect of the plantar fascia. The ma ss is slightly hyperintense relative to muscle on the T1 and T2-weighted images. IMPRESSION: 1. An approximately 2.8 x 2 x 1.1 cm enhancing, lobular, multiseptated mass within the distal medial aspect of the plantar fascia which most likely represents a fibroma. Focal pigmented villonodular syn ovitis (giant cell tumor of the tendon sheath) is thought to be less likely, but cannot be entirely e xcluded. 2. 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 3. Mild edema within the distal aspects of the second and third interosseous muscles may represent st rain or inflammation. [facility] MUSCULOSKELETAL RADIOLOGY SECTION Referring Provider Line: [phone] SITE ID: [id number]
== END 2017-09-13 12:07 | disposition home or self-care (01) ==
LOC: DI 12:06
PROVIDERS: ATTEND Physician Assistant
DX: R22.43 Localized swelling, mass and lump, lower limb, bilateral (principal); M19.072 Primary osteoarthritis, left ankle and foot; M19.071 Primary osteoarthritis, right ankle and foot; R60.0 Localized edema
CPT/HCPCS: 73720; A9585

== ENCOUNTER 2018-07-22 11:01 | Day surgery (SDC) | payer OTHER ==
[2018-07-22] MEDS ORDERED: LACTATED RINGERS 1,000 ML IV ONE (11:20)
[2018-07-22] MEDS ORDERED: fentaNYL 250 MCG/5 ML VIAL IVP ONE (12:45)
[2018-07-22] MEDS ORDERED: MIDAZOLAM 2 MG/2 ML VIAL IVP ONE (12:45)
[2018-07-22 14:01] VITALS: BP 127/90
== END 2018-07-22 11:02 | disposition home or self-care (01) ==
LOC: SDS 11:01
PROVIDERS: ATTEND Internal Medicine
PROC: 0DBE8ZX Excision of Large Intestine, Via Natural or Artificial Opening Endoscopic, Diagnostic (ICD-10-PCS; 2018-07-22)
PROC: 0DBM8ZZ Excision of Descending Colon, Via Natural or Artificial Opening Endoscopic (ICD-10-PCS; principal; 2018-07-22 12:30)
DX: R19.7 Diarrhea, unspecified (principal); R10.84 Generalized abdominal pain; D12.4 Benign neoplasm of descending colon; K64.8 Other hemorrhoids
CPT/HCPCS: 45380; J3010; J7120

== ENCOUNTER 2023-09-10 20:32 | Emergency (ER) | payer OTHER ==
[2023-09-10 20:49] VITALS: BP 138/87; O2SAT 96
--- NOTE | 2023-09-10 21:33 | XRAY Report ---
PROCEDURE: Wrist 3 View LT INDICATIONS: FELL/PAIN/TENDERNESS/SWELLING L WRIST TECHNIQUE: 3 views of the wrist were acquired. COMPARISON: None. FINDINGS: Bones: Minimally displaced distal radius fracture and ulnar styloid fracture. Soft tissues: Soft tissue swelling is present. IMPRESSION: Distal radius and ulnar styloid fractures. Reviewed by: Arturo Mesa MD on 09/10/2023 9:32 PM PST Approved by: Arturo Mesa MD on 09/10/2023 9:32 PM [facility] Station ID: [id number]
--- NOTE | 2023-09-10 21:55 | ED Physician Documentation ---
History of Present Illness - Stated complaint Stated Complaint: LT WRIST INJ - Chief complaint Chief Complaint: Ext Problem PD PAST MEDICAL HISTORY - Past Medical History Cardiovascular: Hypertension, High cholesterol Respiratory: Asthma, Other Neuro: None Endocrine/Autoimmune: Type 2 diabetes GI: Cholelithiasis : None HEENT: Chronic sinusitis Psych: None Musculoskeletal: None Derm: None - Past Surgical History Past Surgical History: Yes General: Cholecystectomy, Other HEENT: Other - Present Medications Home Medications: Ambulatory Orders Medication Instructions Recorded Confirmed Amlodipine Besylate 10 mg PO DAILY 07/23/17 02/14/23 Atorvastatin [Lipitor] 10 mg PO DAILY 07/23/17 02/14/23 Gabapentin 300 mg PO BID 07/23/17 02/14/23 Loratadine 10 mg PO DAILY 07/23/17 02/14/23 Montelukast [Singulair] 10 mg PO QPM 07/23/17 02/14/23 hydroCHLOROthiazide 12.5 mg PO DAILY 07/23/17 02/14/23 [Hydrochlorothiazide] lisinopriL [Lisinopril] 20 mg PO DAILY 07/23/17 02/14/23 metFORMIN [Glucophage] 500 mg PO BID 07/23/17 02/14/23 Dulaglutide [Trulicity] 1 mg SQ OAW 02/13/23 - Allergies Allergies/Adverse Reactions: Allergies Allergy/AdvReac Type Severity Reaction Status Date / Time No Known Drug Allergies Allergy Verified 09/10/23 20:49 - Social History Does the pt smoke?: No Smoking Status: Never smoker Does the pt drink ETOH?: No Does the pt have substance abuse?: No - Immunizations Immunizations are current?: Yes - POLST Patient has POLST: No POLST Status: Full Code Results - Vitals Vitals: Vital Signs - 24 hr 09/10/23 20:44 Temperature 36.1 C L Heart Rate 97 Respiratory 17 Rate Blood Pressure 138/87 H O2 Saturation 96 Oxygen O2 Source Room air Departure - Departure Disposition: 01 Home, Self Care Clinical Impression: Closed fracture distal radius and ulna Condition: Stable Instructions: ED Fx Upper Ext Comments: You were seen in the emergency department for Distal radius and ulna fracture. Take ibuprofen 600 mg every 6 hours as needed for pain with a meal. Please follow-up with Orthopedics and return to the emergency department if you have any new or worsening symptoms or other concerns.
== END 2023-09-10 22:00 | disposition home or self-care (01) ==
LOC: ED 20:32
DX: S52.502A Unspecified fracture of the lower end of left radius, initial encounter for closed fracture (principal); S52.602A Unspecified fracture of lower end of left ulna, initial encounter for closed fracture; W19.XXXA Unspecified fall, initial encounter
CPT/HCPCS: 99283